=== PATIENT | female | born 1935 | race Caucasian/White ===

== ENCOUNTER 2017-02-13 06:27 | Inpatient (IN) | payer OTHER, MEDICAID ==
[2017-02-13] MEDS: METHYLPREDNISOLONE 125 MG INJ IV ×3 (06:41→18:00)
[2017-02-13] MEDS: IPRATROPIUM (NEB) 0.5 MG/2.5 ML AMP INH (06:47)
[2017-02-13] MEDS: ALBUTEROL 0.5% (NEB) 2.5 MG/0.5 ML AMP INH (06:47)
[2017-02-13 06:55] LABS: ADD MAN DIFF? NO
[2017-02-13 06:59] LABS: ABNORMAL IP MESSAGE 1; BASOPHIL # 0.1 10^3/ul (0.0-0.1); BASOPHILS % 0.4 % (0.0-2.0); EOSINOPHILS # 0.1 10^3/ul (0.0-0.5); EOSINOPHILS % 0.8 % (0.0-7.0); HEMATOCRIT 31.6 % (37.0-47.0); HEMOGLOBIN 9.3 g/dl (12.0-16.0); LYMPHOCYTES # 2.4 10^3/ul (0.8-2.9); LYMPHOCYTES % 12.9 % (15.0-51.0); MEAN CORPUSCULAR HEMOGLOBIN 23.1 pg (29.0-33.0); MEAN CORPUSCULAR HGB CONC 29.4 g/dl (32.0-37.0); MEAN CORPUSCULAR VOLUME 78.4 fl (82.0-101.0); MEAN PLATELET VOLUME 10.9 fl (7.4-10.4); MONOCYTE # 1.7 10^3/ul (0.3-0.9); MONOCYTES % 9.3 % (0.0-11.0); NEUTROPHILS % 76.1 % (39.0-77.0); PLATELET COUNT 632 10^3/UL (140-415); RED BLOOD COUNT 4.03 10^6/ul (4.20-5.40)
[2017-02-13 06:59] LABS: WHITE BLOOD COUNT 18.5 10^3/ul (4.8-10.8)
[2017-02-13 07:07] LABS: POSITIVE DIFF @See below
[2017-02-13 07:18] LABS: ANION GAP 17 (8-16); BLOOD UREA NITROGEN 28 mg/dl (7-20); CALCIUM 9.5 mg/dl (8.4-10.2); CARBON DIOXIDE 29 mmol/L (21-31); CHLORIDE 97 mmol/L (97-110); CREATININE 0.72 mg/dl (0.44-1.00); GLUCOSE 298 mg/dl (70-220); POTASSIUM 4.9 mmol/L (3.5-5.1); SODIUM 138 mmol/L (135-144)
[2017-02-13 07:26] LABS: B-TYPE NATRIURETIC PEPTIDE 11600 PG/ML (0-450)
[2017-02-13 07:33] LABS: TROPONIN-I 0.263 ng/ml (0.00-0.12)
[2017-02-13 08:06] LABS: LACTIC ACID 3.2 mmol/L (0.5-2.0)
[2017-02-13] MEDS: CEFEPIME 2GM/50 ML (PMX) 50 ML IVPB (08:14)
[2017-02-13] MEDS: VANCOMYCIN 1 GM (PMX) 250 ML IVPB (08:15)
[2017-02-13] MEDS: FUROSEMIDE 40 MG INJ IV (08:52)
[2017-02-13] MEDS ORDERED: BISACODYL (EC) 5 MG TAB PO (09:30)
[2017-02-13] MEDS ORDERED: ACETAMINOPHEN 325 MG TAB PO ×2 (09:30)
[2017-02-13] MEDS ORDERED: ONDANSETRON 4 MG INJ IV ×2 (09:30)
[2017-02-13] MEDS ORDERED: MAGNESIUM HYDROXIDE 30ML CUP PO (09:30)
[2017-02-13] MEDS ORDERED: NACL 0.9% 3 ML SYG IV (09:30)
[2017-02-13] MEDS ORDERED: SOD CHLORIDE 0.9% IV (09:30)
[2017-02-13] MEDS ORDERED: morphine 2 MG INJ IV (09:30)
[2017-02-13] MEDS ORDERED: HYDROCODONE/APAP (5/325) TAB PO (09:30)
[2017-02-13] MEDS ORDERED: DOCUSATE SODIUM 100 MG CAP PO (09:30)
[2017-02-13] MEDS: SOD CHLORIDE 0.45% 1,000 ML IV ×2 (09:49→22:00)
[2017-02-13] MEDS: ENALAPRILAT 1.25 MG INJ IV ×3 (09:50→20:43)
[2017-02-13] MEDS: ASPIRIN 325 MG TAB PO (09:50)
[2017-02-13] MEDS: AZITHROMYCIN 500MG/NS (PMX) 250 ML IV (09:50)
[2017-02-13] MEDS: MAGNESIUM SULFATE 2 GM/50 ML 50 ML IVPB (09:51)
[2017-02-13] MEDS: SODIUM CHLORIDE 0.9% 1L BAG IV (10:07)
[2017-02-13] MEDS: SALMETEROL/FLUTICASONE 500/50 INHA INH ×2 (10:39→20:33)
[2017-02-13 11:17] LABS: CREATINE KINASE 44 IU/L (23-200)
[2017-02-13 11:18] LABS: LACTIC ACID 1.9 mmol/L (0.5-2.0)
[2017-02-13 11:30] LABS: CK INDEX 7.9; CK-MB 3.48 ng/ml (0.0-2.4)
[2017-02-13 11:32] LABS: HEMOGLOBIN A1C 5.5 % (0-5.9)
[2017-02-13 11:33] LABS: TROPONIN-I 0.284 ng/ml (0.00-0.12)
[2017-02-13 12:35] LABS: LACTIC ACID 1.8 mmol/L (0.5-2.0)
[2017-02-13] MEDS: ALBUTEROL/IPRATROPIUM (NEB) 3 ML AMP HHN ×3 (13:00→20:42)
[2017-02-13] MEDS: CEFTRIAXONE 1 GM/50 ML (PMX) 50 ML IVPB (13:13)
[2017-02-13 14:25] LABS: CK-MB 3.42 ng/ml (0.0-2.4); TROPONIN-I 0.306 ng/ml (0.00-0.12)
[2017-02-13 14:35] LABS: CK INDEX 7.8; CREATINE KINASE 44 IU/L (23-200)
[2017-02-13 15:41] LABS: CREATINE KINASE 41 IU/L (23-200)
[2017-02-13 15:54] LABS: CK INDEX 9.4; CK-MB 3.85 ng/ml (0.0-2.4)
[2017-02-13 16:03] LABS: TROPONIN-I 0.291 ng/ml (0.00-0.12)
[2017-02-13] MEDS ORDERED: GLUCOSE GEL 15 GRAM TUBE PO ×2 (20:00)
[2017-02-13] MEDS ORDERED: GLUCOSE GEL 15 GRAM TUBE BUCCAL (20:00)
[2017-02-13] MEDS ORDERED: DEXTROSE 50% 50 ML SYRINGE IV ×2 (20:00)
[2017-02-13] MEDS ORDERED: GLUCAGON 1 MG INJ IM (20:00)
[2017-02-13] MEDS: MONTELUKAST 10 MG TAB PO (20:31)
[2017-02-13] MEDS: ATORVASTATIN 20 MG TAB PO (20:32)
[2017-02-13] MEDS: FAMOTIDINE 20 MG INJ IV (20:32)
[2017-02-13 21:01] LABS: CREATINE KINASE 44 IU/L (23-200)
[2017-02-13] MEDS ORDERED: VITAMIN A & D 5 GM OINT PACKET TOP (21:05)
[2017-02-13 21:10] LABS: CK INDEX 6.9; CK-MB 3.03 ng/ml (0.0-2.4)
[2017-02-13 21:23] LABS: TROPONIN-I 0.185 ng/ml (0.00-0.12)
[2017-02-13] MEDS: INSULIN ASPART [NOVOLOG] 3 ML PEN SC (21:38)
[2017-02-13] MEDS: BUPROPION 75 MG TAB PO (22:04)
[2017-02-14] MEDS: METHYLPREDNISOLONE 125 MG INJ IV ×5 (00:29→23:28)
[2017-02-14] MEDS: ALBUTEROL/IPRATROPIUM (NEB) 3 ML AMP HHN ×6 (01:55→20:10)
[2017-02-14] MEDS: ACCU-CHEK XX (02:27)
[2017-02-14] MEDS: ENALAPRILAT 1.25 MG INJ IV (03:30)
[2017-02-14 07:05] LABS: ADD MAN DIFF? NO
[2017-02-14 07:42] LABS: FREE T4 (FREE THYROXINE) 1.17 ng/dl (0.85-1.93)
[2017-02-14 07:49] LABS: INR 0.99; PROTIME 13.2 Sec (11.9-14.9)
[2017-02-14 08:17] LABS: WHITE BLOOD COUNT 12.4 10^3/ul (4.8-10.8)
[2017-02-14 08:17] LABS: ABNORMAL IP MESSAGE 1; BASOPHILS % 0.1 % (0.0-2.0); HEMATOCRIT 26.5 % (37.0-47.0); HEMOGLOBIN 7.9 g/dl (12.0-16.0); LYMPHOCYTES # 0.5 10^3/ul (0.8-2.9); LYMPHOCYTES % 3.8 % (15.0-51.0); MEAN CORPUSCULAR HEMOGLOBIN 22.6 pg (29.0-33.0); MEAN CORPUSCULAR HGB CONC 29.8 g/dl (32.0-37.0); MEAN CORPUSCULAR VOLUME 75.9 fl (82.0-101.0); MEAN PLATELET VOLUME 10.9 fl (7.4-10.4); MONOCYTE # 0.3 10^3/ul (0.3-0.9); MONOCYTES % 2.8 % (0.0-11.0); NEUTROPHIL # 11.5 10^3/ul (1.6-7.5); NEUTROPHILS % 92.7 % (39.0-77.0); PLATELET COUNT 489 10^3/UL (140-415); RED BLOOD COUNT 3.49 10^6/ul (4.20-5.40); RED CELL DISTRIBUTION WIDTH 17.2 % (11.5-14.5)
[2017-02-14 08:21] LABS: POSITIVE DIFF @See below
[2017-02-14 08:28] LABS: ALANINE AMINOTRANSFERASE 66 IU/L (13-69); ALBUMIN 3.7 g/dl (3.3-4.9); ALBUMIN/GLOBULIN RATIO 1.23; ALKALINE PHOSPHATASE 57 IU/L (42-121); ANION GAP 22 (8-16); ASPARTATE AMINO TRANSFERASE 71 IU/L (15-46); BILIRUBIN,INDIRECT 0.2 mg/dl (0-1.1); BILIRUBIN,TOTAL 0.2 mg/dl (0.2-1.3); BLOOD UREA NITROGEN 42 mg/dl (7-20); CALCIUM 9.4 mg/dl (8.4-10.2); CARBON DIOXIDE 25 mmol/L (21-31); CHLORIDE 100 mmol/L (97-110); CHOL/HDL RATIO 2.7 RATIO; CHOLESTEROL 184 mg/dl (100-200); CREATININE 0.68 mg/dl (0.44-1.00); GLUCOSE 160 mg/dl (70-220); HDL CHOLESTEROL 66 mg/dl (33-92); LDL CHOLESTEROL,CALCULATED 107 mg/dl; MAGNESIUM 2.2 mg/dl (1.7-2.5); POTASSIUM 4.8 mmol/L (3.5-5.1); SODIUM 142 mmol/L (135-144); TOTAL PROTEIN 6.7 g/dl (6.1-8.1); TRIGLYCERIDES 53 mg/dl (0-149)
[2017-02-14 08:35] LABS: CREATINE KINASE 74 IU/L (23-200)
[2017-02-14 08:36] LABS: B-TYPE NATRIURETIC PEPTIDE 9110 PG/ML (0-450)
[2017-02-14 08:48] LABS: CK INDEX 5.5; CK-MB 4.07 ng/ml (0.0-2.4); TROPONIN-I 0.132 ng/ml (0.00-0.12)
[2017-02-14] MEDS: AZITHROMYCIN 500MG/NS (PMX) 250 ML IV (09:30)
[2017-02-14] MEDS ORDERED: ENALAPRILAT 1.25 MG INJ IV (09:30)
[2017-02-14] MEDS: NICOTINE (21 MG/24 HR) PATCH TRANSDERM (10:12)
[2017-02-14] MEDS: ASPIRIN (EC) 81 MG TAB PO (10:12)
[2017-02-14] MEDS: SALMETEROL/FLUTICASONE 500/50 INHA INH ×2 (10:12→20:30)
[2017-02-14] MEDS: FAMOTIDINE 20 MG INJ IV ×2 (10:13→20:30)
[2017-02-14] MEDS: SOD CHLORIDE 0.45% 1,000 ML IV (10:35)
[2017-02-14] MEDS: INSULIN ASPART [NOVOLOG] 3 ML PEN SC ×4 (11:50→20:35)
[2017-02-14] MEDS: ENOXAPARIN 30 MG/0.3 ML SYG SC (11:51)
[2017-02-14] MEDS: CEFTRIAXONE 1 GM/50 ML (PMX) 50 ML IVPB (12:54)
[2017-02-14] MEDS: FUROSEMIDE 20 MG INJ IV (18:35)
[2017-02-14] MEDS: MONTELUKAST 10 MG TAB PO (20:30)
[2017-02-14] MEDS: ATORVASTATIN 20 MG TAB PO (20:30)
[2017-02-14] MEDS: BUPROPION 75 MG TAB PO (20:32)
[2017-02-15] MEDS: ALBUTEROL/IPRATROPIUM (NEB) 3 ML AMP HHN ×6 (00:44→20:43)
[2017-02-15] MEDS: ACCU-CHEK XX (02:02)
[2017-02-15] MEDS: FUROSEMIDE 20 MG INJ IV (06:34)
[2017-02-15] MEDS: METHYLPREDNISOLONE 125 MG INJ IV ×3 (06:34→15:47)
[2017-02-15] MEDS: INSULIN ASPART [NOVOLOG] 3 ML PEN SC ×4 (07:55→21:00)
[2017-02-15] MEDS: SALMETEROL/FLUTICASONE 500/50 INHA INH ×2 (08:28→21:00)
[2017-02-15 08:31] LABS: CREATINE KINASE 355 IU/L (23-200)
[2017-02-15 08:39] LABS: ALANINE AMINOTRANSFERASE 71 IU/L (13-69); ALBUMIN 3.3 g/dl (3.3-4.9); ALBUMIN/GLOBULIN RATIO 1.13; ALKALINE PHOSPHATASE 47 IU/L (42-121); ANION GAP 15 (8-16); ASPARTATE AMINO TRANSFERASE 63 IU/L (15-46); BILIRUBIN,INDIRECT 0.2 mg/dl (0-1.1); BILIRUBIN,TOTAL 0.2 mg/dl (0.2-1.3); BLOOD UREA NITROGEN 50 mg/dl (7-20); CALCIUM 9.2 mg/dl (8.4-10.2); CARBON DIOXIDE 28 mmol/L (21-31); CHLORIDE 98 mmol/L (97-110); CREATININE 0.69 mg/dl (0.44-1.00); GLUCOSE 121 mg/dl (70-220); POTASSIUM 4.3 mmol/L (3.5-5.1); SODIUM 137 mmol/L (135-144); TOTAL PROTEIN 6.2 g/dl (6.1-8.1)
[2017-02-15 08:42] LABS: CK INDEX 2.2
[2017-02-15 08:43] LABS: B-TYPE NATRIURETIC PEPTIDE 16300 PG/ML (0-450)
[2017-02-15 08:45] LABS: TROPONIN-I 0.135 ng/ml (0.00-0.12)
[2017-02-15] MEDS: FAMOTIDINE 20 MG INJ IV ×2 (10:07→21:00)
[2017-02-15] MEDS: ASPIRIN (EC) 81 MG TAB PO (10:08)
[2017-02-15] MEDS: NICOTINE (21 MG/24 HR) PATCH TRANSDERM (10:18)
[2017-02-15] MEDS: ENOXAPARIN 30 MG/0.3 ML SYG SC (10:21)
[2017-02-15] MEDS: AZITHROMYCIN 500MG/NS (PMX) 250 ML IV (11:45)
[2017-02-15] MEDS: CEFTRIAXONE 1 GM/50 ML (PMX) 50 ML IVPB (13:32)
[2017-02-15] MEDS ORDERED: ALBUTEROL/IPRATROPIUM (NEB) 3 ML AMP HHN (16:30)
[2017-02-15] MEDS: LORAZEPAM 0.5 MG TAB PO (17:47)
[2017-02-15] MEDS: BUPROPION 75 MG TAB PO (21:00)
[2017-02-15] MEDS: ATORVASTATIN 20 MG TAB PO (21:00)
[2017-02-15] MEDS: MONTELUKAST 10 MG TAB PO (21:00)
[2017-02-15] MEDS: LORAZEPAM 2 MG INJ IV (23:03)
[2017-02-16] MEDS: ALBUTEROL/IPRATROPIUM (NEB) 3 ML AMP HHN ×6 (01:40→20:01)
[2017-02-16] MEDS: ACCU-CHEK XX (02:00)
[2017-02-16] MEDS: FUROSEMIDE 20 MG INJ IV ×2 (06:17→15:16)
[2017-02-16] MEDS: METHYLPREDNISOLONE 125 MG INJ IV ×4 (06:18→18:00)
[2017-02-16] MEDS: INSULIN ASPART [NOVOLOG] 3 ML PEN SC ×4 (07:55→20:43)
[2017-02-16] MEDS: SALMETEROL/FLUTICASONE 500/50 INHA INH ×2 (09:00→20:39)
[2017-02-16] MEDS: ASPIRIN (EC) 81 MG TAB PO (09:00)
[2017-02-16] MEDS: AZITHROMYCIN 500MG/NS (PMX) 250 ML IV (10:03)
[2017-02-16] MEDS: FAMOTIDINE 20 MG INJ IV ×2 (10:03→20:40)
[2017-02-16] MEDS: NICOTINE (21 MG/24 HR) PATCH TRANSDERM (10:04)
[2017-02-16] MEDS: ENOXAPARIN 30 MG/0.3 ML SYG SC (10:11)
[2017-02-16] MEDS: CEFTRIAXONE 1 GM/50 ML (PMX) 50 ML IVPB (12:41)
[2017-02-16 13:00] LABS: ADD MAN DIFF? NO
[2017-02-16 13:05] LABS: ABNORMAL IP MESSAGE 1; HEMOGLOBIN 7.7 g/dl (12.0-16.0); LYMPHOCYTES # 0.2 10^3/ul (0.8-2.9); LYMPHOCYTES % 4.5 % (15.0-51.0); MEAN CORPUSCULAR HEMOGLOBIN 22.8 pg (29.0-33.0); MEAN CORPUSCULAR HGB CONC 30.8 g/dl (32.0-37.0); MEAN CORPUSCULAR VOLUME 74.2 fl (82.0-101.0); MONOCYTE # 0.3 10^3/ul (0.3-0.9); MONOCYTES % 6.7 % (0.0-11.0); NEUTROPHIL # 3.9 10^3/ul (1.6-7.5); NEUTROPHILS % 88.4 % (39.0-77.0); PLATELET COUNT 430 10^3/UL (140-415); RED BLOOD COUNT 3.37 10^6/ul (4.20-5.40); RED CELL DISTRIBUTION WIDTH 16.6 % (11.5-14.5)
[2017-02-16 13:05] LABS: WHITE BLOOD COUNT 4.5 10^3/ul (4.8-10.8)
[2017-02-16 13:24] LABS: POSITIVE DIFF @See below
[2017-02-16 13:36] LABS: ANION GAP 11 (8-16); BLOOD UREA NITROGEN 44 mg/dl (7-20); CALCIUM 8.6 mg/dl (8.4-10.2); CARBON DIOXIDE 29 mmol/L (21-31); CHLORIDE 99 mmol/L (97-110); CREATININE 0.68 mg/dl (0.44-1.00); GLUCOSE 115 mg/dl (70-220); POTASSIUM 3.4 mmol/L (3.5-5.1); SODIUM 136 mmol/L (135-144)
[2017-02-16 16:13] LABS: AADO2 Arterial 69.4 mmHg (7.0-24.0); Allen Test ACCEPTAB; Arterial Base Excess 1.8 mmol/L (-3.0-3); Arterial Blood Gas Oxygen Sat 94.3 mmHG (95.0-100.0); Arterial COHb 0.8 % (0.0-3.0); Arterial Fraction of Oxyhgb 93.5 % (93.0-99.0); Arterial HCO3 26.6 mmol/L (22.0-26.0); Arterial MetHb 0.1 % (0.0-1.5); Arterial Total Hemglobin 9.2 g/dl (12.0-18.0); Arterial pCO2 42.3 mmhg (35-45); MODE NASAL CANNULA; Site Right Radial
[2017-02-16] MEDS ORDERED: POTASSIUM CHLORIDE 20 MEQ in DEXTROSE 5% 100 ML IVPB (16:30)
[2017-02-16] MEDS: POTASSIUM CHLORIDE 50 ML IVPB ×2 (18:00→19:13)
[2017-02-16 20:09] LABS: IMMEDIATE SPIN CROSSMATCH 1 1
[2017-02-16] MEDS: BUPROPION 75 MG TAB PO (20:40)
[2017-02-16] MEDS: MONTELUKAST 10 MG TAB PO (20:40)
[2017-02-16] MEDS: ATORVASTATIN 20 MG TAB PO (20:47)
[2017-02-17] MEDS: METHYLPREDNISOLONE 125 MG INJ IV ×4 (00:26→17:18)
[2017-02-17] MEDS: ALBUTEROL/IPRATROPIUM (NEB) 3 ML AMP HHN ×7 (01:03→21:49)
[2017-02-17] MEDS: ACCU-CHEK XX (02:16)
[2017-02-17] MEDS: FUROSEMIDE 20 MG INJ IV ×2 (06:03→16:05)
[2017-02-17] MEDS: NICOTINE (21 MG/24 HR) PATCH TRANSDERM (08:23)
[2017-02-17] MEDS: FAMOTIDINE 20 MG INJ IV ×2 (08:24→20:44)
[2017-02-17] MEDS: ASPIRIN (EC) 81 MG TAB PO (08:25)
[2017-02-17] MEDS: SALMETEROL/FLUTICASONE 500/50 INHA INH ×2 (08:25→20:45)
[2017-02-17] MEDS: ENOXAPARIN 30 MG/0.3 ML SYG SC (08:29)
[2017-02-17] MEDS: INSULIN ASPART [NOVOLOG] 3 ML PEN SC ×4 (08:30→21:03)
[2017-02-17] MEDS: AZITHROMYCIN 500MG/NS (PMX) 250 ML IV (10:43)
[2017-02-17 11:41] LABS: ADD MAN DIFF? NO
[2017-02-17] MEDS: CEFTRIAXONE 1 GM/50 ML (PMX) 50 ML IVPB (11:42)
[2017-02-17 11:49] LABS: ABNORMAL IP MESSAGE 1; HEMATOCRIT 34.3 % (37.0-47.0); HEMOGLOBIN 10.8 g/dl (12.0-16.0); LYMPHOCYTES # 0.2 10^3/ul (0.8-2.9); LYMPHOCYTES % 2.9 % (15.0-51.0); MEAN CORPUSCULAR HEMOGLOBIN 23.9 pg (29.0-33.0); MEAN CORPUSCULAR HGB CONC 31.5 g/dl (32.0-37.0); MEAN CORPUSCULAR VOLUME 75.9 fl (82.0-101.0); MEAN PLATELET VOLUME 11.3 fl (7.4-10.4); MONOCYTE # 0.4 10^3/ul (0.3-0.9); MONOCYTES % 5.8 % (0.0-11.0); NEUTROPHIL # 6.6 10^3/ul (1.6-7.5); NEUTROPHILS % 90.8 % (39.0-77.0); NUCLEATED RED BLOOD CELLS% 0.4 /100WBC (0.0-0.0); PLATELET COUNT 573 10^3/UL (140-415); RED BLOOD COUNT 4.52 10^6/ul (4.20-5.40); RED CELL DISTRIBUTION WIDTH 17.5 % (11.5-14.5)
[2017-02-17 11:49] LABS: WHITE BLOOD COUNT 7.3 10^3/ul (4.8-10.8)
[2017-02-17 11:57] LABS: POSITIVE DIFF @See below
[2017-02-17 12:20] LABS: ANION GAP 18 (8-16); BLOOD UREA NITROGEN 52 mg/dl (7-20); CALCIUM 8.9 mg/dl (8.4-10.2); CARBON DIOXIDE 29 mmol/L (21-31); CHLORIDE 94 mmol/L (97-110); GLUCOSE 213 mg/dl (70-220); POTASSIUM 3.6 mmol/L (3.5-5.1); SODIUM 137 mmol/L (135-144)
[2017-02-17] MEDS: MAGNESIUM SULFATE 1 GM/D5W 100 ML IVPB (16:05)
[2017-02-17] MEDS: ATORVASTATIN 20 MG TAB PO (20:44)
[2017-02-17] MEDS: MONTELUKAST 10 MG TAB PO (20:44)
[2017-02-17] MEDS: BUPROPION 75 MG TAB PO (20:45)
[2017-02-18] MEDS: ALBUTEROL/IPRATROPIUM (NEB) 3 ML AMP HHN ×6 (01:00→20:05)
[2017-02-18] MEDS: METHYLPREDNISOLONE 125 MG INJ IV ×2 (01:23→06:07)
[2017-02-18] MEDS: ACCU-CHEK XX (02:00)
[2017-02-18] MEDS: FUROSEMIDE 20 MG INJ IV (06:08)
[2017-02-18 06:21] LABS: PROCALCITONIN <0.10 ng/mL (<0.10)
[2017-02-18] MEDS: NICOTINE (21 MG/24 HR) PATCH TRANSDERM (08:37)
[2017-02-18] MEDS: FAMOTIDINE 20 MG INJ IV ×2 (08:37→20:53)
[2017-02-18] MEDS: ASPIRIN (EC) 81 MG TAB PO (08:38)
[2017-02-18] MEDS: SALMETEROL/FLUTICASONE 500/50 INHA INH ×2 (08:38→20:51)
[2017-02-18] MEDS: AZITHROMYCIN 500MG/NS (PMX) 250 ML IV (08:40)
[2017-02-18] MEDS: ENOXAPARIN 30 MG/0.3 ML SYG SC (08:48)
[2017-02-18] MEDS: INSULIN ASPART [NOVOLOG] 3 ML PEN SC ×4 (08:48→21:00)
[2017-02-18 11:53] LABS: ADD MAN DIFF? NO
[2017-02-18 11:57] LABS: ABNORMAL IP MESSAGE 1; BASOPHILS % 0.1 % (0.0-2.0); HEMATOCRIT 33.3 % (37.0-47.0); HEMOGLOBIN 10.5 g/dl (12.0-16.0); LYMPHOCYTES # 0.2 10^3/ul (0.8-2.9); LYMPHOCYTES % 2.1 % (15.0-51.0); MEAN CORPUSCULAR HEMOGLOBIN 23.8 pg (29.0-33.0); MEAN CORPUSCULAR HGB CONC 31.5 g/dl (32.0-37.0); MEAN CORPUSCULAR VOLUME 75.5 fl (82.0-101.0); MEAN PLATELET VOLUME 10.6 fl (7.4-10.4); MONOCYTE # 0.5 10^3/ul (0.3-0.9); MONOCYTES % 6.8 % (0.0-11.0); NEUTROPHIL # 6.3 10^3/ul (1.6-7.5); NEUTROPHILS % 90.4 % (39.0-77.0); NUCLEATED RED BLOOD CELLS% 0.3 /100WBC (0.0-0.0); PLATELET COUNT 484 10^3/UL (140-415); RED BLOOD COUNT 4.41 10^6/ul (4.20-5.40); RED CELL DISTRIBUTION WIDTH 17.7 % (11.5-14.5)
[2017-02-18 12:02] LABS: POSITIVE DIFF @See below
[2017-02-18] MEDS: CEFTRIAXONE 1 GM/50 ML (PMX) 50 ML IVPB (12:15)
[2017-02-18 12:23] LABS: ANION GAP 20 (8-16); BLOOD UREA NITROGEN 47 mg/dl (7-20); CALCIUM 8.6 mg/dl (8.4-10.2); CARBON DIOXIDE 31 mmol/L (21-31); CHLORIDE 90 mmol/L (97-110); CREATININE 0.77 mg/dl (0.44-1.00); GLUCOSE 187 mg/dl (70-220); POTASSIUM 3.3 mmol/L (3.5-5.1); SODIUM 138 mmol/L (135-144)
[2017-02-18] MEDS: POTASSIUM CHLORIDE (SR) 20 MEQ TAB PO (17:41)
[2017-02-18] MEDS: SPIRONOLACTONE 25 MG TAB PO (17:42)
[2017-02-18] MEDS: LOSARTAN 25 MG TAB PO (17:42)
[2017-02-18] MEDS: METHYLPREDNISOLONE 40 MG INJ IV (20:52)
[2017-02-18] MEDS: ATORVASTATIN 20 MG TAB PO (20:53)
[2017-02-18] MEDS: BUPROPION 75 MG TAB PO (20:53)
[2017-02-18] MEDS: MONTELUKAST 10 MG TAB PO (20:53)
[2017-02-19] MEDS: ALBUTEROL/IPRATROPIUM (NEB) 3 ML AMP HHN ×5 (01:00→17:04)
[2017-02-19] MEDS: ACCU-CHEK XX (02:00)
[2017-02-19] MEDS: FUROSEMIDE 20 MG INJ IV (06:08)
[2017-02-19 07:53] LABS: ADD MAN DIFF? NO
[2017-02-19 07:55] LABS: ABNORMAL IP MESSAGE 1; BASOPHILS % 0.1 % (0.0-2.0); HEMATOCRIT 34.6 % (37.0-47.0); HEMOGLOBIN 10.8 g/dl (12.0-16.0); LYMPHOCYTES # 0.4 10^3/ul (0.8-2.9); LYMPHOCYTES % 3.7 % (15.0-51.0); MEAN CORPUSCULAR HEMOGLOBIN 23.8 pg (29.0-33.0); MEAN CORPUSCULAR HGB CONC 31.2 g/dl (32.0-37.0); MEAN CORPUSCULAR VOLUME 76.2 fl (82.0-101.0); MEAN PLATELET VOLUME 10.8 fl (7.4-10.4); MONOCYTE # 1.1 10^3/ul (0.3-0.9); MONOCYTES % 9.2 % (0.0-11.0); NEUTROPHIL # 10.2 10^3/ul (1.6-7.5); NEUTROPHILS % 86.6 % (39.0-77.0); PLATELET COUNT 493 10^3/UL (140-415); RED BLOOD COUNT 4.54 10^6/ul (4.20-5.40); RED CELL DISTRIBUTION WIDTH 17.8 % (11.5-14.5)
[2017-02-19 07:55] LABS: WHITE BLOOD COUNT 11.7 10^3/ul (4.8-10.8)
[2017-02-19] MEDS: INSULIN ASPART [NOVOLOG] 3 ML PEN SC ×2 (07:55→11:43)
[2017-02-19 08:12] LABS: ALANINE AMINOTRANSFERASE 62 IU/L (13-69); ALBUMIN 3.3 g/dl (3.3-4.9); ALBUMIN/GLOBULIN RATIO 1.26; ALKALINE PHOSPHATASE 40 IU/L (42-121); ANION GAP 8 (8-16); ASPARTATE AMINO TRANSFERASE 25 IU/L (15-46); BILIRUBIN,INDIRECT 0.1 mg/dl (0-1.1); BILIRUBIN,TOTAL 0.1 mg/dl (0.2-1.3); BLOOD UREA NITROGEN 46 mg/dl (7-20); CALCIUM 8.7 mg/dl (8.4-10.2); CARBON DIOXIDE 40 mmol/L (21-31); CHLORIDE 91 mmol/L (97-110); CREATININE 0.71 mg/dl (0.44-1.00); GLUCOSE 120 mg/dl (70-220); SODIUM 135 mmol/L (135-144); TOTAL PROTEIN 5.9 g/dl (6.1-8.1)
[2017-02-19 08:18] LABS: PHOSPHORUS 4.3 mg/dl (2.5-4.9)
[2017-02-19] MEDS: SALMETEROL/FLUTICASONE 500/50 INHA INH (08:18)
[2017-02-19] MEDS: SPIRONOLACTONE 25 MG TAB PO (08:19)
[2017-02-19] MEDS: NICOTINE (21 MG/24 HR) PATCH TRANSDERM (08:19)
[2017-02-19] MEDS: METHYLPREDNISOLONE 40 MG INJ IV (08:19)
[2017-02-19 08:20] LABS: B-TYPE NATRIURETIC PEPTIDE 9710 PG/ML (0-450)
[2017-02-19] MEDS: ASPIRIN (EC) 81 MG TAB PO (08:20)
[2017-02-19] MEDS: LOSARTAN 25 MG TAB PO (08:20)
[2017-02-19] MEDS: FAMOTIDINE 20 MG INJ IV (08:20)
[2017-02-19] MEDS: ENOXAPARIN 30 MG/0.3 ML SYG SC (08:30)
[2017-02-19] MEDS: AZITHROMYCIN 500MG/NS (PMX) 250 ML IV (09:20)
[2017-02-19] MEDS: CEFTRIAXONE 1 GM/50 ML (PMX) 50 ML IVPB (13:52)
== END 2017-02-19 18:25 | DRG 280 ==
LOC: E/R 06:27 → TEL 09:11
PROC: 30233N1 Transfusion of Nonautologous Red Blood Cells into Peripheral Vein, Percutaneous Approach (ICD-10-PCS; principal; 2017-02-16)
DX: I11.0 Hypertensive heart disease with heart failure (principal); J13 Pneumonia due to Streptococcus pneumoniae; I21.4 Non-ST elevation (NSTEMI) myocardial infarction; J96.21 Acute and chronic respiratory failure with hypoxia; J44.1 Chronic obstructive pulmonary disease with (acute) exacerbation; D62 Acute posthemorrhagic anemia; I27.20 Pulmonary hypertension, unspecified; I50.33 Acute on chronic diastolic (congestive) heart failure; F41.9 Anxiety disorder, unspecified; F17.210 Nicotine dependence, cigarettes, uncomplicated; R31.9 Hematuria, unspecified; I35.1 Nonrheumatic aortic (valve) insufficiency; Z91.14 Patient's other noncompliance with medication regimen; E11.9 Type 2 diabetes mellitus without complications
CPT/HCPCS: 36415; 36430; 36600; 71010; 80048; 80053; 80061; 82550; 82553; 82803; 82962; 83036; 83605; 83735; 83880; 84100; 84145; 84439; 84443; 84484; 85025; 85610; 86644; 86850; 86900; 86901; 86920; 87040; 87086; 93005; 93306; 94640; 94644; 94660; 94664; 96365; 96366; 96368; 96375; 96376; 97110; 97116; 97163; 97530; 99291-25; J1940